=== PATIENT | female | born 1935 | race Caucasian/White ===

== ENCOUNTER 2018-09-24 17:07 | Inpatient (IN) | payer MEDICARE, OTHER ==
[2018-09-24 17:35] LABS: ABNORMAL IP MESSAGE 1; MEAN CORPUSCULAR VOLUME 81.3 fl (82.0-101.0)
[2018-09-24 17:40] LABS: HEMATOCRIT 18.2 % (37.0-47.0); MEAN CORPUSCULAR HEMOGLOBIN 26.8 pg (29.0-33.0); MEAN PLATELET VOLUME 10.3 fl (7.4-10.4); PLATELET COUNT 291 10^3/UL (140-415); RED BLOOD COUNT 2.24 10^6/ul (4.20-5.40)
[2018-09-24 17:40] LABS: WHITE BLOOD COUNT 14.9 10^3/ul (4.8-10.8)
[2018-09-24 17:52] LABS: ADD MAN DIFF? YES; PATH REVIEW? YES; POSITIVE DIFF @See below
[2018-09-24 18:03] LABS: ANION GAP 11 (5-13); BLOOD UREA NITROGEN 53 mg/dl (7-20); CALCIUM 8.5 mg/dl (8.4-10.2); CARBON DIOXIDE 18 mmol/L (21-31); CHLORIDE 88 mmol/L (97-110); CREATININE 1.28 mg/dl (0.44-1.00); GLUCOSE 161 mg/dl (70-220)
[2018-09-24 18:11] LABS: SODIUM 117 mmol/L (135-144)
[2018-09-24 18:12] LABS: POTASSIUM 6.8 mmol/L (3.5-5.1)
[2018-09-24 18:16] LABS: TROPONIN-I 0.523 ng/ml (0.000-0.120)
[2018-09-24] MEDS ORDERED: DEXTROSE 50% 50 ML SYRINGE IV (18:30)
[2018-09-24 18:55] LABS: ALANINE AMINOTRANSFERASE 13 IU/L (13-69); ALBUMIN 3.3 g/dl (3.3-4.9); ALKALINE PHOSPHATASE 51 IU/L (42-121); ASPARTATE AMINO TRANSFERASE 28 IU/L (15-46); BILIRUBIN,INDIRECT 0.3 mg/dl (0-1.1); BILIRUBIN,TOTAL 0.3 mg/dl (0.2-1.3)
[2018-09-24] MEDS: FUROSEMIDE 40 MG INJ IV (19:09)
[2018-09-24] MEDS: DEXTROSE 50% 50 ML SYRINGE IV (19:09)
[2018-09-24] MEDS: SOD CHLORIDE 0.9% 1,000 ML IV (19:09)
[2018-09-24] MEDS: CA CHLORIDE 10% 10 ML SYRINGE IV (19:09)
[2018-09-24] MEDS: NA BICARBONATE 8.4% 50 ML SYG IV (19:10)
[2018-09-24 19:11] LABS: B-TYPE NATRIURETIC PEPTIDE 11200 PG/ML (0-450)
[2018-09-24 19:15] LABS: ADD UMIC YES; UR ASCORBIC ACID NEGATIVE (NEGATIVE); UR BACTERIA FEW /HPF (NONE SEEN); UR BILIRUBIN (Dip) NEGATIVE (NEGATIVE); UR BLOOD (Dip) 2+ mg/dL (NEGATIVE); UR CLARITY SLIGHTLY CLOUDY (CLEAR); UR COLOR YELLOW (YELLOW); UR GLUCOSE (Dip) NEGATIVE (NEGATIVE); UR KETONES (Dip) NEGATIVE (NEGATIVE); UR LEUKOCYTE ESTERASE (Dip) NEGATIVE Leu/ul (NEGATIVE); UR NITRITE (Dip) NEGATIVE (NEGATIVE); UR RBC 3 /HPF (0-5); UR SPECIFIC GRAVITY (Dip) 1.011 (1.003-1.030); UR SQUAMOUS EPITHELIAL CELL FEW /HPF (FEW); UR TOTAL PROTEIN (Dip) NEGATIVE (NEGATIVE); UR UROBILINOGEN (Dip) NEGATIVE (NEGATIVE); UR WBC 1 /HPF (0-5)
[2018-09-24] MEDS: INSULIN REGULAR, HUMAN 100 UNIT/1 ML 3ML VIAL IVP (19:22)
[2018-09-24] MEDS ORDERED: BISACODYL (EC) 5 MG TAB PO (20:00)
[2018-09-24] MEDS ORDERED: DOCUSATE SODIUM 100 MG CAP PO (20:00)
[2018-09-24] MEDS ORDERED: IPRATROPIUM (NEB) 0.5 MG/2.5 ML AMP NEB (20:00)
[2018-09-24] MEDS ORDERED: ALBUTEROL 0.083% (NEB) 2.5 MG/3 ML AMP NEB (20:00)
[2018-09-24] MEDS: ALBUTEROL 0.5% (NEB) 2.5 MG/0.5 ML AMP INH (20:13)
[2018-09-24] MEDS: ONDANSETRON 4 MG INJ IV (23:39)
[2018-09-24] MEDS: SOD CHLORIDE 0.9% 0 ML IV (23:43)
[2018-09-25] LABS: ADD MAN DIFF? NO
[2018-09-25 00:02] LABS: WHITE BLOOD COUNT 16.4 10^3/ul (4.8-10.8)
[2018-09-25 00:02] LABS: ABNORMAL IP MESSAGE 1; BASOPHILS % 0.2 % (0.0-2.0); EOSINOPHILS # 0.1 10^3/ul (0.0-0.5); EOSINOPHILS % 0.7 % (0.0-7.0); HEMATOCRIT 23.7 % (37.0-47.0); HEMOGLOBIN 7.9 g/dl (12.0-16.0); LYMPHOCYTES # 2.6 10^3/ul (0.8-2.9); MEAN CORPUSCULAR HEMOGLOBIN 27.4 pg (29.0-33.0); MEAN CORPUSCULAR HGB CONC 33.3 g/dl (32.0-37.0); MEAN CORPUSCULAR VOLUME 82.3 fl (82.0-101.0); MEAN PLATELET VOLUME 10.1 fl (7.4-10.4); MONOCYTE # 1.6 10^3/ul (0.3-0.9); MONOCYTES % 9.7 % (0.0-11.0); NEUTROPHIL # 11.8 10^3/ul (1.6-7.5); NEUTROPHILS % 72.4 % (39.0-77.0); PLATELET COUNT 282 10^3/UL (140-415); RED BLOOD COUNT 2.88 10^6/ul (4.20-5.40); RED CELL DISTRIBUTION WIDTH 14.7 % (11.5-14.5)
[2018-09-25] MEDS: SODIUM POLYSTYRENE 15 GM KIT (POWDER + SORBITOL) PO (00:02)
[2018-09-25 00:10] LABS: POSITIVE DIFF @See below
[2018-09-25 00:24] LABS: LACTIC ACID 1.3 mmol/L (0.5-2.0)
[2018-09-25 00:33] LABS: CREATINE KINASE 35 IU/L (23-200)
[2018-09-25 00:34] LABS: HEMOGLOBIN A1C 6.6 % (0-5.9)
[2018-09-25 00:39] LABS: ALANINE AMINOTRANSFERASE 21 IU/L (13-69); ALBUMIN 3.4 g/dl (3.3-4.9); ALKALINE PHOSPHATASE 55 IU/L (42-121); ANION GAP 15 (5-13); ASPARTATE AMINO TRANSFERASE 32 IU/L (15-46); BILIRUBIN,INDIRECT 0.8 mg/dl (0-1.1); BILIRUBIN,TOTAL 0.8 mg/dl (0.2-1.3); BLOOD UREA NITROGEN 50 mg/dl (7-20); CALCIUM 9.4 mg/dl (8.4-10.2); CARBON DIOXIDE 20 mmol/L (21-31); CHLORIDE 88 mmol/L (97-110); CREATININE 1.22 mg/dl (0.44-1.00); GLUCOSE 161 mg/dl (70-220); SODIUM 123 mmol/L (135-144)
[2018-09-25 00:45] LABS: CK INDEX 2.7; CK-MB 0.94 ng/ml (0.0-2.4)
[2018-09-25] MEDS ORDERED: DEXTROSE 5% 500 ML IV (01:30)
[2018-09-25] MEDS: ALBUMIN HUMAN 25% 100 ML IV ×3 (01:31→04:55)
[2018-09-25] MEDS: ONDANSETRON 4 MG INJ IV (01:35)
[2018-09-25] MEDS: NA POLYST SULFON 15 GM/60 ML BTL PO ×2 (04:07)
[2018-09-25 05:18] LABS: ADD MAN DIFF? NO
[2018-09-25 05:31] LABS: BASOPHILS % 0.2 % (0.0-2.0); EOSINOPHILS # 0.1 10^3/ul (0.0-0.5); EOSINOPHILS % 0.6 % (0.0-7.0); HEMATOCRIT 20.8 % (37.0-47.0); LYMPHOCYTES % 20.5 % (15.0-51.0); MEAN CORPUSCULAR HEMOGLOBIN 27.8 pg (29.0-33.0); MEAN CORPUSCULAR HGB CONC 33.7 g/dl (32.0-37.0); MEAN CORPUSCULAR VOLUME 82.5 fl (82.0-101.0); MEAN PLATELET VOLUME 10.2 fl (7.4-10.4); MONOCYTE # 1.5 10^3/ul (0.3-0.9); NEUTROPHILS % 67.7 % (39.0-77.0); PLATELET COUNT 307 10^3/UL (140-415); RED BLOOD COUNT 2.52 10^6/ul (4.20-5.40); RED CELL DISTRIBUTION WIDTH 14.5 % (11.5-14.5)
[2018-09-25 05:31] LABS: WHITE BLOOD COUNT 14.7 10^3/ul (4.8-10.8)
[2018-09-25 05:47] LABS: CREATINE KINASE 30 IU/L (23-200)
[2018-09-25 06:00] LABS: CK INDEX 2.9; CK-MB 0.88 ng/ml (0.0-2.4)
[2018-09-25 06:02] LABS: TROPONIN-I 0.451 ng/ml (0.000-0.120)
[2018-09-25] MEDS: PANTOPRAZOLE 40 MG INJ IV (06:04)
[2018-09-25 06:21] LABS: ANION GAP 11 (5-13); BLOOD UREA NITROGEN 46 mg/dl (7-20); CALCIUM 9.3 mg/dl (8.4-10.2); CARBON DIOXIDE 22 mmol/L (21-31); CHLORIDE 91 mmol/L (97-110); CREATININE 1.25 mg/dl (0.44-1.00); GLUCOSE 155 mg/dl (70-220); POTASSIUM 5.2 mmol/L (3.5-5.1); SODIUM 124 mmol/L (135-144)
[2018-09-25] MEDS: ACETAMINOPHEN 650MG/20.3ML CUP PO (06:45)
[2018-09-25] MEDS: LEVOTHYROXINE 150 MCG TAB PO (06:45)
[2018-09-25 08:00] LABS: OCCULT BLOOD STOOL POSITIVE (NEGATIVE)
[2018-09-25] MEDS: FLUTICASONE/VILANTEROL 100-25 INH (08:44)
[2018-09-25] MEDS: AMLODIPINE 5 MG TAB PO (08:47)
[2018-09-25 09:14] LABS: IMMEDIATE SPIN CROSSMATCH 1 2
[2018-09-25] MEDS: HYDROCODONE/APAP (5/325) TAB PO (10:21)
[2018-09-25 11:36] LABS: ADD UMIC YES; UR ASCORBIC ACID NEGATIVE (NEGATIVE); UR BILIRUBIN (Dip) NEGATIVE (NEGATIVE); UR BLOOD (Dip) 3+ mg/dL (NEGATIVE); UR CLARITY CLEAR (CLEAR); UR COLOR YELLOW (YELLOW); UR GLUCOSE (Dip) NEGATIVE (NEGATIVE); UR KETONES (Dip) NEGATIVE (NEGATIVE); UR LEUKOCYTE ESTERASE (Dip) NEGATIVE Leu/ul (NEGATIVE); UR MUCUS FEW /HPF (NONE SEEN); UR NITRITE (Dip) NEGATIVE (NEGATIVE); UR RBC 99 /HPF (0-5); UR SPECIFIC GRAVITY (Dip) 1.011 (1.003-1.030); UR SQUAMOUS EPITHELIAL CELL FEW /HPF (FEW); UR TOTAL PROTEIN (Dip) NEGATIVE (NEGATIVE); UR UROBILINOGEN (Dip) NEGATIVE (NEGATIVE); UR WBC 4 /HPF (0-5)
[2018-09-25 11:58] LABS: SODIUM,URINE RANDOM 48 mmol/L (30-90)
[2018-09-25 11:58] LABS: CREATININE,URINE RANDOM 44.81 mg/dl (20-320)
[2018-09-25 13:20] LABS: OSMOLALITY,URINE 328 mOsm/kg (250-1200)
[2018-09-25 14:31] LABS: ADD MAN DIFF? NO
[2018-09-25 14:33] LABS: BASOPHILS % 0.2 % (0.0-2.0); EOSINOPHILS # 0.1 10^3/ul (0.0-0.5); EOSINOPHILS % 0.6 % (0.0-7.0); HEMATOCRIT 23.1 % (37.0-47.0); HEMOGLOBIN 7.6 g/dl (12.0-16.0); LYMPHOCYTES # 1.8 10^3/ul (0.8-2.9); LYMPHOCYTES % 12.8 % (15.0-51.0); MEAN CORPUSCULAR HEMOGLOBIN 27.4 pg (29.0-33.0); MEAN CORPUSCULAR HGB CONC 32.9 g/dl (32.0-37.0); MEAN CORPUSCULAR VOLUME 83.4 fl (82.0-101.0); MONOCYTE # 1.4 10^3/ul (0.3-0.9); MONOCYTES % 9.7 % (0.0-11.0); NEUTROPHIL # 10.9 10^3/ul (1.6-7.5); NEUTROPHILS % 75.8 % (39.0-77.0); NUCLEATED RED BLOOD CELLS% 0.1 /100WBC (0.0-0.0); PLATELET COUNT 260 10^3/UL (140-415); RED BLOOD COUNT 2.77 10^6/ul (4.20-5.40); RED CELL DISTRIBUTION WIDTH 14.3 % (11.5-14.5)
[2018-09-25 14:33] LABS: WHITE BLOOD COUNT 14.4 10^3/ul (4.8-10.8)
[2018-09-25 14:50] LABS: ANION GAP 11 (5-13); BLOOD UREA NITROGEN 47 mg/dl (7-20); CARBON DIOXIDE 22 mmol/L (21-31); CHLORIDE 90 mmol/L (97-110); CREATININE 1.29 mg/dl (0.44-1.00); GLUCOSE 212 mg/dl (70-220); POTASSIUM 4.8 mmol/L (3.5-5.1); SODIUM 123 mmol/L (135-144)
[2018-09-25 17:00] LABS: ADD MAN DIFF? NO
[2018-09-25 17:02] LABS: WHITE BLOOD COUNT 14.8 10^3/ul (4.8-10.8)
[2018-09-25 17:03] LABS: ABNORMAL IP MESSAGE 1; BASOPHILS % 0.2 % (0.0-2.0); EOSINOPHILS # 0.1 10^3/ul (0.0-0.5); EOSINOPHILS % 0.7 % (0.0-7.0); HEMATOCRIT 23.2 % (37.0-47.0); HEMOGLOBIN 7.7 g/dl (12.0-16.0); LYMPHOCYTES # 2.3 10^3/ul (0.8-2.9); LYMPHOCYTES % 15.5 % (15.0-51.0); MEAN CORPUSCULAR HEMOGLOBIN 27.6 pg (29.0-33.0); MEAN CORPUSCULAR HGB CONC 33.2 g/dl (32.0-37.0); MEAN CORPUSCULAR VOLUME 83.2 fl (82.0-101.0); MEAN PLATELET VOLUME 10.1 fl (7.4-10.4); MONOCYTE # 1.6 10^3/ul (0.3-0.9); MONOCYTES % 10.6 % (0.0-11.0); NEUTROPHIL # 10.7 10^3/ul (1.6-7.5); NEUTROPHILS % 72.1 % (39.0-77.0); NUCLEATED RED BLOOD CELLS% 0.2 /100WBC (0.0-0.0); PLATELET COUNT 258 10^3/UL (140-415); RED BLOOD COUNT 2.79 10^6/ul (4.20-5.40); RED CELL DISTRIBUTION WIDTH 14.6 % (11.5-14.5)
[2018-09-25 17:23] LABS: ANION GAP 11 (5-13); BLOOD UREA NITROGEN 47 mg/dl (7-20); CARBON DIOXIDE 23 mmol/L (21-31); CHLORIDE 90 mmol/L (97-110); CREATININE 1.29 mg/dl (0.44-1.00); GLUCOSE 188 mg/dl (70-220); POTASSIUM 4.8 mmol/L (3.5-5.1); SODIUM 124 mmol/L (135-144)
[2018-09-25] MEDS: ATORVASTATIN 40 MG TAB PO (20:30)
[2018-09-25 22:24] LABS: ANION GAP 13 (5-13); BLOOD UREA NITROGEN 46 mg/dl (7-20); CALCIUM 9.3 mg/dl (8.4-10.2); CARBON DIOXIDE 25 mmol/L (21-31); CHLORIDE 88 mmol/L (97-110); CREATININE 1.29 mg/dl (0.44-1.00); GLUCOSE 165 mg/dl (70-220); SODIUM 126 mmol/L (135-144)
[2018-09-26] MEDS: PANTOPRAZOLE (EC) 40 MG TAB PO (06:00)
[2018-09-26] MEDS: LEVOTHYROXINE 150 MCG TAB PO (06:14)
[2018-09-26] MEDS: FUROSEMIDE 40 MG INJ IV (08:42)
[2018-09-26 08:50] LABS: ADD MAN DIFF? NO
[2018-09-26] MEDS: FLUTICASONE/VILANTEROL 100-25 INH (08:56)
[2018-09-26 09:00] LABS: WHITE BLOOD COUNT 24.7 10^3/ul (4.8-10.8)
[2018-09-26 09:00] LABS: ABNORMAL IP MESSAGE 1; BASOPHIL # 0.1 10^3/ul (0.0-0.1); BASOPHILS % 0.2 % (0.0-2.0); EOSINOPHILS # 0.1 10^3/ul (0.0-0.5); EOSINOPHILS % 0.3 % (0.0-7.0); HEMATOCRIT 26.8 % (37.0-47.0); HEMOGLOBIN 8.8 g/dl (12.0-16.0); LYMPHOCYTES # 1.4 10^3/ul (0.8-2.9); LYMPHOCYTES % 5.7 % (15.0-51.0); MEAN CORPUSCULAR HEMOGLOBIN 27.9 pg (29.0-33.0); MEAN CORPUSCULAR HGB CONC 32.8 g/dl (32.0-37.0); MEAN CORPUSCULAR VOLUME 85.1 fl (82.0-101.0); MEAN PLATELET VOLUME 10.1 fl (7.4-10.4); MONOCYTE # 1.9 10^3/ul (0.3-0.9); MONOCYTES % 7.5 % (0.0-11.0); NEUTROPHIL # 21.1 10^3/ul (1.6-7.5); NEUTROPHILS % 85.4 % (39.0-77.0); NUCLEATED RED BLOOD CELLS% 0.2 /100WBC (0.0-0.0); PLATELET COUNT 337 10^3/UL (140-415); RED BLOOD COUNT 3.15 10^6/ul (4.20-5.40); RED CELL DISTRIBUTION WIDTH 14.7 % (11.5-14.5)
[2018-09-26] MEDS ORDERED: LISINOPRIL 5 MG TAB PO (09:00)
[2018-09-26 09:16] LABS: CREATINE KINASE 40 IU/L (23-200)
[2018-09-26 09:19] LABS: ANION GAP 14 (5-13); BLOOD UREA NITROGEN 40 mg/dl (7-20); CALCIUM 9.5 mg/dl (8.4-10.2); CARBON DIOXIDE 23 mmol/L (21-31); CHLORIDE 91 mmol/L (97-110); CREATININE 1.17 mg/dl (0.44-1.00); GLUCOSE 178 mg/dl (70-220); MAGNESIUM 1.8 mg/dl (1.7-2.5); PHOSPHORUS 4.3 mg/dl (2.5-4.9); POTASSIUM 4.7 mmol/L (3.5-5.1); SODIUM 128 mmol/L (135-144)
[2018-09-26 09:25] LABS: POSITIVE DIFF @See below
[2018-09-26 09:28] LABS: CK INDEX 4.1; CK-MB 1.63 ng/ml (0.0-2.4)
[2018-09-26 09:44] LABS: TROPONIN-I 0.583 ng/ml (0.000-0.120)
[2018-09-26 10:14] LABS: CHOL/HDL RATIO 1.9 RATIO; HDL CHOLESTEROL 39 mg/dl (33-92); LDL CHOLESTEROL,CALCULATED 23 mg/dl; TRIGLYCERIDES 72 mg/dl (0-149)
[2018-09-26 10:14] LABS: CHOLESTEROL 76 mg/dl (100-200)
[2018-09-26 10:23] LABS: B-TYPE NATRIURETIC PEPTIDE 11500 PG/ML (0-450)
[2018-09-26 14:52] LABS: CREATININE, RANDOM URINE 44 mg/dL (20-275); MICROALBUMIN/CREATININE RATIO 159 (<30)
[2018-09-26] MEDS ORDERED: PROPOFOL 20 ML (16:52)
[2018-09-26] MEDS: ACETAMINOPHEN 650MG/20.3ML CUP PO (19:03)
[2018-09-26] MEDS: ATORVASTATIN 40 MG TAB PO (21:36)
[2018-09-26] MEDS: HYDROCODONE/APAP (5/325) TAB PO (21:37)
[2018-09-26] MEDS ORDERED: GLUCOSE GEL 15 GRAM TUBE BUCCAL (22:30)
[2018-09-26] MEDS ORDERED: GLUCAGON 1 MG INJ IM (22:30)
[2018-09-26] MEDS ORDERED: DEXTROSE 50% 50 ML SYRINGE IV ×2 (22:30)
[2018-09-26] MEDS ORDERED: GLUCOSE GEL 15 GRAM TUBE PO ×2 (22:30)
[2018-09-26] MEDS: INSULIN ASPART [NOVOLOG] 3 ML PEN SC (23:37)
[2018-09-27] MEDS: PANTOPRAZOLE (EC) 40 MG TAB PO (06:06)
[2018-09-27] MEDS: LEVOTHYROXINE 150 MCG TAB PO (06:06)
[2018-09-27 06:19] LABS: ADD MAN DIFF? NO
[2018-09-27 06:27] LABS: WHITE BLOOD COUNT 15.9 10^3/ul (4.8-10.8)
[2018-09-27 06:27] LABS: BASOPHILS % 0.2 % (0.0-2.0); EOSINOPHILS # 0.1 10^3/ul (0.0-0.5); EOSINOPHILS % 0.9 % (0.0-7.0); HEMATOCRIT 22.7 % (37.0-47.0); HEMOGLOBIN 7.4 g/dl (12.0-16.0); LYMPHOCYTES # 2.2 10^3/ul (0.8-2.9); LYMPHOCYTES % 13.7 % (15.0-51.0); MEAN CORPUSCULAR HEMOGLOBIN 27.8 pg (29.0-33.0); MEAN CORPUSCULAR HGB CONC 32.6 g/dl (32.0-37.0); MEAN CORPUSCULAR VOLUME 85.3 fl (82.0-101.0); MEAN PLATELET VOLUME 9.8 fl (7.4-10.4); MONOCYTE # 1.5 10^3/ul (0.3-0.9); MONOCYTES % 9.2 % (0.0-11.0); NEUTROPHILS % 75.2 % (39.0-77.0); PLATELET COUNT 267 10^3/UL (140-415); RED BLOOD COUNT 2.66 10^6/ul (4.20-5.40)
[2018-09-27 06:54] LABS: ANION GAP 13 (5-13); BLOOD UREA NITROGEN 43 mg/dl (7-20); CARBON DIOXIDE 25 mmol/L (21-31); CHLORIDE 90 mmol/L (97-110); CREATININE 1.38 mg/dl (0.44-1.00); GLUCOSE 176 mg/dl (70-220); MAGNESIUM 1.7 mg/dl (1.7-2.5); PHOSPHORUS 4.9 mg/dl (2.5-4.9); POTASSIUM 4.6 mmol/L (3.5-5.1); SODIUM 128 mmol/L (135-144)
[2018-09-27] MEDS: HYDROCODONE/APAP (5/325) TAB PO (06:59)
[2018-09-27 07:24] LABS: HEMOGLOBIN A1C 6.5 % (0-5.9)
[2018-09-27] MEDS: INSULIN ASPART [NOVOLOG] 3 ML PEN SC ×2 (08:36→11:37)
[2018-09-27] MEDS: FUROSEMIDE 40 MG TAB PO (09:00)
[2018-09-27] MEDS: FUROSEMIDE 40 MG INJ IV (09:14)
[2018-09-27] MEDS: FLUTICASONE/VILANTEROL 100-25 INH (10:58)
== END 2018-09-27 17:50 | disposition home or self-care (01) | DRG 377 ==
LOC: E/R 17:07 → TEL 09-25 17:07 → ICU 18:55
PROC: 0DB58ZX Excision of Esophagus, Via Natural or Artificial Opening Endoscopic, Diagnostic (ICD-10-PCS; principal; 2018-09-26 16:15)
PROC: 0DB78ZX Excision of Stomach, Pylorus, Via Natural or Artificial Opening Endoscopic, Diagnostic (ICD-10-PCS; 2018-09-26 16:15)
PROC: 30233N1 Transfusion of Nonautologous Red Blood Cells into Peripheral Vein, Percutaneous Approach (ICD-10-PCS; 2018-09-26 16:15)
DX: K92.2 Gastrointestinal hemorrhage, unspecified (principal); I21.A1 Myocardial infarction type 2; I50.43 Acute on chronic combined systolic (congestive) and diastolic (congestive) heart failure; I13.0 Hypertensive heart and chronic kidney disease with heart failure and stage 1 through stage 4 chronic kidney disease, or unspecified chronic kidney disease; N17.9 Acute kidney failure, unspecified; E87.1 Hypo-osmolality and hyponatremia; I42.9 Cardiomyopathy, unspecified; D64.9 Anemia, unspecified; Z68.31 Body mass index [BMI] 31.0-31.9, adult; N18.9 Chronic kidney disease, unspecified; E66.01 Morbid (severe) obesity due to excess calories; E11.9 Type 2 diabetes mellitus without complications; E03.9 Hypothyroidism, unspecified; E66.9 Obesity, unspecified; Z68.39 Body mass index [BMI] 39.0-39.9, adult; Z79.02 Long term (current) use of antithrombotics/antiplatelets; Z79.82 Long term (current) use of aspirin; E87.5 Hyperkalemia; I44.0 Atrioventricular block, first degree; I27.20 Pulmonary hypertension, unspecified; G47.33 Obstructive sleep apnea (adult) (pediatric); I35.0 Nonrheumatic aortic (valve) stenosis
CPT/HCPCS: 36415; 36430; 71045; 71250; 74176; 80048; 80053; 80061; 80076; 81001; 81003; 82043; 82270; 82533; 82550; 82553; 82962; 83036; 83605; 83735; 83880; 83935; 84100; 84155; 84300; 84484; 85025; 86850; 86900; 86901; 86920; 87040; 87081; 88305; 88312; 93005; 93306; 93970; 94664; 99291-25